=== PATIENT | female | born 1985 | race Caucasian/White ===

== ENCOUNTER 2025-02-21 09:56 | Emergency (ER) | payer OTHER ==
--- NOTE | 2025-02-21 10:55 | RAD REPORT ---
EXAM: CT brain without contrast HISTORY: DIZZINESS COMPARISON: None TECHNIQUE: Multiple contiguous axial images were obtained and a CT of the brain without contrast. Sag ittal and coronal reformats were performed. One or more of the following dose reduction techniques were used: Automated exposure control, adjust ment of the mA and/or kV according to patient size, and/or iterative reconstruction. FINDINGS: No evidence of hydrocephalus, intracranial hemorrhage, or extra-axial fluid collection. The brain is normal in morphology. No evidence of midline shift or areas of brain edema. The calvarium is intact. The visualized paranasal sinuses and mastoid air cells are essentially clear . IMPRESSION: No evidence of acute intracranial abnormality.
--- NOTE | 2025-02-21 11:00 | RAD REPORT ---
EXAMINATION: TWO VIEW CHEST XR CLINICAL INDICATION: DYSPNEA TECHNIQUE: 2 views of the chest was performed. COMPARISON: 06/22/2012 FINDINGS: The lungs are well inflated and clear. The heart is normal in size. No displaced fractures evident. IMPRESSION: No acute or significant abnormalities.
[2025-02-21 11:02] LABS: Absolute Basophils 0.1 K/uL (0-0.5); Absolute Eosinophils 0.4 K/uL (0-0.5); Absolute Lymphocytes (CBC) 3.4 K/uL (0.7-4.9); Absolute Monocytes 0.5 K/uL (0.1-1.3); Absolute Neutrophil 5.5 K/uL (1.8-8.0); Basophils % 0.8 % (0-1.3); Eosinophils % 3.9 % (0-4.4); Hematocrit 42.5 % (36.0-45.0); Hemoglobin 14.1 g/dL (12.0-15.0); Lymphocytes % 34.4 % (15.3-44.8); MCH 28.9 pg (27.0-35.0); MCHC 33.1 g/dL (32.0-36.0); MCV 87.1 fL (80-100); MPV 8.1 fL (7.6-11.3); Monocytes % 5.3 % (3.3-12.3); Neutrophils % 55.6 % (41.7-73.7); Platelets 378 thou/uL (152-406); RBC Red Blood Cell Count 4.88 M/uL (3.86-4.86)
[2025-02-21 11:19] LABS: ALT/SGPT 24 U/L (13-56); AST/SGOT 17 U/L (15-37); Albumin 3.3 g/dL (3.4-5.0); Albumin/Globulin Ratio 0.9 (1.1-1.8); Alkaline Phosphatase 83 U/L (45-117); Anion Gap 7.6 mEq/L (5.0-15.0); BUN Blood Urea Nitrogen 8 mg/dL (7-18); Bicarbonate 27 mEq/L (21-32); Bilirubin Total 0.2 mg/dL (0.2-1.0); Globulin 3.8 g/dL (2.3-3.5); Glomerular Filtration Rate 79 ml/min (=/>90); Glucose Level 100 mg/dL (74-106); Magnesium 2.4 mg/dL (1.6-2.4); NT PRO-BNP 97 pg/mL (<125); Potassium 3.6 mEq/L (3.5-5.1); Protein, Total 7.1 g/dL (6.4-8.2); Sodium Level 139 mEq/L (136-145)
[2025-02-21 11:20] LABS: Bilirubin Direct < 0.2 mg/dL (0-0.2); Troponin High Sensitivity < 3.0 pg/mL (<58.9)
[2025-02-21] MEDS ORDERED: NA CHLORIDE 0.9% 500 ML ONE (11:39)
--- NOTE | 2025-02-21 12:25 | ER ---
Nurse's Notes [facility] Name: Christian Montez Age: 39 yrs Sex: Female : 1985 Arrival Date: 02/21/2025 Time: 09:56 Bed 12 Private MD: Diagnosis: Dyspnea, unspecified;Muscle weakness (generalized) Presentation: 02/21 10:05 Chief complaint: Patient states: Potassium 3.1 last week. Having SOB with exertion, ll1 dizziness, HOFFMANN's off/on since January 19. Coronavirus screen: Client denies travel out of the [place] in the last 14 days. At this time, the client does not indicate any symptoms associated with coronavirus-19. Ebola Screen: Patient denies travel to an Ebola-affected area in the 21 days before illness onset. Initial Sepsis Screen: Does the patient meet any 2 criteria? No. Patient's initial sepsis screen is negative. Does the patient have a suspected source of infection? No. Patient's initial sepsis screen is negative. Risk Assessment: Do you want to hurt yourself or someone else? Patient reports no desire to harm self or others. Onset of symptoms was January 19, 2025. 10:05 Method Of Arrival: Ambulatory ll1 10:05 Acuity: GENARO 3 ll1 Triage Assessment: 10:07 General: Appears uncomfortable, Behavior is calm, cooperative, appropriate for age, ll1 Reports fatigue for. Pain: Complains of pain in head Quality of pain is described as aching. Neuro: Reports dizziness, headache weakness. Respiratory: Reports shortness of breath on exertion. [employer]: 12:45 LMP N/A - control method, Not ll1 Historical: - Allergies: 10:05 No Known Allergies; ll1 - PMHx: 10:05 chron's; anxiety/depression; ll1 - PSHx: 10:05 Tonsillectomy; ll1 - Immunization history:: Adult Immunizations up to date. - Infectious Disease History:: Denies. - Social history:: Smoking status: Patient denies any tobacco usage or history of. Screenin:45 [facility] ED Fall Risk Assessment (Adult) History of falling in the last 3 months, ll1 including since admission No falls in past 3 months (0 pts) Confusion or Disorientation No (0 pts) Intoxicated or Sedated No (0 pts) Impaired Gait No (0 pts) Mobility Assist Device Used No (0 pt) Altered Elimination No (0 pt) Score/Fall Risk Level 0 - 2 = Low Risk Maintained a safe environment, Hourly rounding (assess needs \T\ fall precautionary measures) done. Abuse screen: Denies threats or abuse. Nutritional screening: No deficits noted. Tuberculosis screening: No symptoms or risk factors identified. Assessment: 10:50 Reassessment: No changes from previously documented assessment. Patient and/or family ll1 updated on plan of care and expected duration. Pain level reassessed. 11:43 Reassessment: No changes from previously documented assessment. Patient and/or family ll1 updated on plan of care and expected duration. Pain level reassessed. Patient is alert, oriented x 3, equal unlabored respirations, skin warm/dry/pink. 12:45 Reassessment: No changes from previously documented assessment. Patient and/or family ll1 updated on plan of care and expected duration. Pain level reassessed. Patient is alert, oriented x 3, equal unlabored respirations, skin warm/dry/pink. Patient states feeling better. Vital Signs: 10:05 BP 105 / 74; Pulse 97; Resp 17; Temp 97.2; Pulse Ox 100% ; Weight 62.6 kg; Height 5 ft. ll1 7 in. ; Pain 1/10; 10:05 Body Mass Index 21.61 (62.60 kg, 170.18 cm) ll1 10:05 Pain Scale: Adult ll1 ED Course: 09:59 Patient arrived in ED. im 10:04 Arm band placed on. ll1 10:05 Rolando Sepulveda is Attending Physician. ci 10:07 Triage completed. ll1 10:15 Patient has correct armband on for positive identification. Provided Education on: ER ll1 procedures and process. 10:25 Initial lab(s) drawn, by me, sent to lab. Inserted saline lock: 22 gauge in right ll1 antecubital area, using aseptic technique. Blood collected. Flushed with 10 mL NS. 10:28 Patient placed in an exam room, on a stretcher. ll1 10:39 EKG done, by ED staff, reviewed by Rolando Sepulveda. hb 10:53 CT Head Brain wo Cont In Process Unspecified. EDMS 10:56 XRAY Chest Pa And Lat (2 Views) In Process Unspecified. EDMS 12:45 No provider procedures requiring assistance completed. IV discontinued, intact, ll1 bleeding controlled, No redness/swelling at site. Pressure dressing applied. Administered Medications: 11:43 Drug: NS 0.9% IV 500 ml IV at 500 ml once; to be given as a bolus over 60 minutes ll1 Route: IV; Rate: 500 ml; Site: right antecubital; 12:43 Follow up: Response: No adverse reaction; IV Status: Completed infusion; IV Intake: ll1 500ml Medication: 12:45 VIS not applicable for this client. ll1 Intake: 12:43 IV: 500ml; Total: 500ml. ll1 Outcome: 12:25 Discharge ordered by MD. ci 12:45 Patient left the ED. ll1 12:45 Discharged to home ambulatory, ll1 12:45 Condition: stable 12:45 Discharge instructions given to patient, Instructed on discharge instructions, follow up and referral plans. medication usage, Demonstrated understanding of instructions, follow-up care, Signatures: Dispatcher [employer] EDMS Jeri La, RN RN Alla Carson RN RN ll1 June Osman IheonunekwuRolando ci
--- NOTE | 2025-02-21 12:25 | EDPHYS ---
Physician Documentation [facility] Name: Christian Montez Age: 39 yrs Sex: Female : 1985 Arrival Date: 02/21/2025 Time: 09:56 Bed 12 Private MD: ED Physician Rolando Sepulveda HPI: 02/21 11:06 This 39 yrs old Female presents to ER via Ambulatory with complaints of Abnormal Lab ci Results. 11:06 Patient is a 39-year-old female with PMH Crohn's, anxiety, depression who presents to ci the ED with 1 month of intermittent shortness of breath, dizziness, generalized weakness. Patient endorses dyspnea with minimal exertion, no associated shortness of breath, pedal edema. Patient had blood work done prior to her Crohn's infusion and was found to be slightly hypokalemic with potassium of 3.1. Denies fever, nausea/vomiting, diarrhea. Has had some constipation, no abdominal pain. 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 - Infectious Disease History:: Denies. - Social history:: Smoking status: Patient denies any tobacco usage or history of. ROS: 11:06 Constitutional: Negative for fever, chills, and weight loss. Positive fatigue ci Cardiovascular: Negative for chest pain, palpitations, and edema, 11:06 Respiratory: Positive for shortness of breath, 11:06 Abdomen/GI: Positive for constipation, Negative for abdominal pain, nausea, vomiting, and diarrhea, 11:06 Neuro: Positive for dizziness, headache, Exam: 11:06 Constitutional: This is a well developed, well nourished patient who is awake, alert, ci and in no acute distress. Head/Face: Normocephalic, atraumatic. Eyes: Pupils equal round and reactive to light, extra-ocular motions intact. Lids and lashes normal. Conjunctiva and sclera are non-icteric and not injected. Cornea within normal limits. Periorbital areas with no swelling, redness, or edema. ENT: Nares patent. No nasal discharge, no septal abnormalities noted. Tympanic membranes are normal and external auditory canals are clear. Oropharynx with no redness, swelling, or masses, exudates, or evidence of obstruction, uvula midline. Mucous membranes moist. Neck: Trachea midline, no thyromegaly or masses palpated, and no cervical lymphadenopathy. Supple, full range of motion without nuchal rigidity, or vertebral point tenderness. No Meningismus. Chest/axilla: Normal chest wall appearance and motion. Nontender with no deformity. No lesions are appreciated. Cardiovascular: Regular rate and rhythm with a normal S1 and S2. No gallops, murmurs, or rubs. Normal PMI, no JVD. No pulse deficits. Respiratory: Lungs have equal breath sounds bilaterally, clear to auscultation and percussion. No rales, rhonchi or wheezes noted. No increased work of breathing, no retractions or nasal flaring. Abdomen/GI: Soft, non-tender, with normal bowel sounds. No distension or tympany. No guarding or rebound. No evidence of tenderness throughout. Skin: Warm, dry with normal turgor. Normal color with no rashes, no lesions, and no evidence of cellulitis. MS/ Extremity: Pulses equal, no cyanosis. Neurovascular intact. Full, normal range of motion. Neuro: Awake and alert, GCS 15, oriented to person, place, time, and situation. Cranial nerves II-XII grossly intact. Motor strength 5/5 in all extremities. Sensory grossly intact. Cerebellar exam normal. Normal gait. Vital Signs: 10:05 BP 105 / 74; Pulse 97; Resp 17; Temp 97.2; Pulse Ox 100% ; Weight 62.6 kg; Height 5 ft. ll1 7 in. ; Pain 11/30; 10:05 Body Mass Index 21.61 (62.60 kg, 170.18 cm) ll1 10:05 Pain Scale: Adult ll1 MDM: 10:18 Medical Screening Exam initiated ci 11:06 Differential Diagnosis Vertigo, migraine, dehydration, electrolyte abnormality, CHF, ci ACS. Doubt CVA, TIA. Data reviewed: vital signs, nurses notes. ED course: Patient neurologically intact, AO x 4, with NIH of 0. Symptoms ongoing for over a month. Will obtain labs and imaging, final disposition pending at this time.. 02/21 10:26 Order name: Basic Metabolic Panel; Complete Time: 11:34 ci 04/03 11:34 Interpretation: Within normal limits. ci 04/03 10:26 Order name: CBC with Diff; Complete Time: 11:34 ci 04/03 11:34 Interpretation: Within normal limits. ci 04/03 10:26 Order name: LFT's; Complete Time: 11:34 ci 04/03 11:34 Interpretation: Within normal limits. ci 04/ 10:26 Order name: Magnesium; Complete Time: 11:34 ci 04/03 11:34 Interpretation: Within normal limits. ci 04/03 10:26 Order name: NT PRO-BNP; Complete Time: 11:34 ci 04/ 11:34 Interpretation: Within normal limits. ci 04/ 10:26 Order name: Troponin HS; Complete Time: 11:34 ci 04/03 11:34 Interpretation: Within normal limits. ci 04/03 10:26 Order name: CT Head Brain wo Cont; Complete Time: 11:34 ci 04 11:34 Interpretation: No acute disease. ci 04/ 10:26 Order name: XRAY Chest Pa And Lat (2 Views); Complete Time: 11:34 ci 04/03 11:35 Interpretation: No acute disease. ci 04/ 10:26 Order name: Cardiac monitoring; Complete Time: 10:49 ci 0403 10:26 Order name: EKG - Nurse/Tech; Complete Time: 10:36 ci 04/03 10:26 Order name: IV Saline Lock; Complete Time: 10:36 ci 0403 10:26 Order name: Labs collected and sent; Complete Time: 10:36 ci 0403 10:26 Order name: O2 Per Protocol; Complete Time: 10:49 ci 0403 10:26 Order name: O2 Sat Monitoring; Complete Time: 10:49 ci Administered Medications: 11:43 Drug: NS 0.9% IV 500 ml IV at 500 ml once; to be given as a bolus over 60 minutes ll1 Route: IV; Rate: 500 ml; Site: right antecubital; 12:43 Follow up: Response: No adverse reaction; IV Status: Completed infusion; IV Intake: ll1 500ml Disposition Summary: 02/21/25 12:25 Discharge Ordered Notes: Location: Home ci Condition: Stable ci Diagnosis - Dyspnea, unspecified ci - Muscle weakness (generalized) ci Followup: ci - With: Private Physician - When: - Reason: Recheck today's complaints, Re-evaluation by your physician Discharge Instructions: - Discharge Summary Sheet ci - Shortness of Breath, Adult, [id number] ci - Weakness, [id number] ci Forms: - Medication Reconciliation Form ci - Antibiotic Education ci - Prescription Opioid Use ci - Patient Portal Instructions ci - Leadership Thank You Letter ci Signatures: Dispatcher [employer] EDAlla Capellan RN RN ll1 Rolando Sepulveda ci Corrections: (The following items were deleted from the chart) 10:27 10:27 BASIC METABOLIC PANEL+C.LAB.BRZ ordered. EDMS EDMS 10:27 10:27 CBC+H.LAB.BRZ ordered. EDMS EDMS 10:27 10:27 HEPATIC FUNCTION+C.LAB.BRZ ordered. EDMS EDMS 10:27 10:27 MAGNESIUM+C.LAB.BRZ ordered. EDMS EDMS 10:27 10:27 PROBNP+C.LAB.BRZ ordered. EDMS EDMS 10:27 10:27 Troponin High Sensitivity+C.LAB.BRZ ordered. EDMS EDMS 10:27 10:27 Head Brain Wo Cont+CT.RAD.BRZ ordered. EDMS EDMS 10:27 10:27 Chest Pa And Lat (2 Views)+RAD.RAD.BRZ ordered. EDMS EDMS
[2025-02-21 13:04] VITALS: BP 105/74; TEMP 97.2; O2SAT 100
--- NOTE | 2025-02-22 13:25 | EKG ---
Test Date: 2025-02-21 Test Time: 10:39:18 [employer]ing [employer] Operator: HB MEASUREMENT RESULTS: Intervals: Rate: 84 IN: 120 QRSD: 66 QT: 366 QTc: 432 [place]: P: 76 IN: 120 QRS: 78 T: 82 INTERPRETIVE STATEMENTS: Normal sinus rhythm Normal ECG No previous ECG available for comparison Electronically Signed On 02-22-25 13:19:12 CDT by Aric Carranza
== END 2025-02-21 12:45 | disposition home or self-care (01) ==
LOC: ER 09:56
DX: R06.00 Dyspnea, unspecified (principal); M62.81 Muscle weakness (generalized)
CPT/HCPCS: 93005; 85025; 80048; 36415; 83735; 80076; 84484; 83880; 70450; 71046; 96360; 99284; J7040